=== PATIENT | female | born 1995 | race Caucasian/White ===

== ENCOUNTER 2022-09-10 12:11 | Emergency (ER) | payer OTHER ==
[~2022-09-10] VITALS: Ht 160 cm; Wt 113.9 kg
[2022-09-10] MEDS ORDERED: ZITHROMAX250 MG PO (14:42)
== END 2022-09-10 14:57 | disposition home or self-care (01) ==
LOC: ED 12:11
DX: H73.013 Bullous myringitis, bilateral (principal); Z88.8 Allergy status to other drugs, medicaments and biological substances; Z88.5 Allergy status to narcotic agent
CPT/HCPCS: 99282

== ENCOUNTER 2024-03-25 13:57 | Emergency (ER) | payer OTHER ==
[~2024-03-25] VITALS: Ht 160 cm; Wt 121.9 kg
[~2024-03-25 13:57] MED LIST: ACETAMINOPHEN325 M1; CYCLOBENZAPRINE5 MG; FEROSUL325 MG; HYDROCHLOROTH12.5 M1; HYDROXYZINE PAM25 MG; IBUPROFEN400 MG; LISINOPRIL5 MG; TRAMADOL HCL50 MG PO; VALACYCLOVIR1000 MG; VENLAFAXINE HCL50 MG; ZITHROMAX250 MG PO
--- OUTSIDE RECORDS SUMMARY | 2024-03-25 14:03 | XMS ---
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 Freya VISIT COUNT (12 MO.) 2 J[facility] Gutierrez TOTAL 2 NOTE: Visits indicate total known visits. 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
[2024-03-25] MEDS ORDERED: TRAMADOL HCL50 MG PO (14:52)
[2024-03-25] MEDS ORDERED: CYCLOBENZAPRINE10 MG PO (14:52)
[2024-03-25 15:08] VITALS: BP 133/92
== END 2024-03-25 15:06 | disposition home or self-care (01) ==
LOC: ED 13:57
DX: M54.50 Low back pain, unspecified (principal); M62.830 Muscle spasm of back; Z88.5 Allergy status to narcotic agent; Z79.899 Other long term (current) drug therapy
CPT/HCPCS: 99283